=== PATIENT | male | born 1980 | race Caucasian/White ===

== ENCOUNTER 2018-06-14 20:33 | Emergency (ER) | payer OTHER ==
[2018-06-14 20:44] VITALS: BP 149/88; PULSE 106; TEMP 98.6; BMI 30.2
[2018-06-14 21:08] LABS: PH,URINE 5.5 (4.5-8); URINE APPEARANCE Clear; URINE BILIRUBIN Negative (NEGATIVE); URINE COLOR Yellow; URINE GLUCOSE (UA) Negative (NEGATIVE); URINE KETONE Negative (NEGATIVE); URINE LEUK ESTERASE Negative (NEGATIVE); URINE NITRITE Negative (NEGATIVE); URINE PROTEIN Negative (NEGATIVE); URINE UROBILINOGEN 0.2 (0.2-1.0)
--- NOTE | 2018-06-14 21:09 | PDOC ---
History of Present Illness - General History Source: Patient Exam Limitations: No Limitations - History of Present Illness Initial Comments: 06/14/18 21:32 The patient is a 37 year old male, with a significant past medical history CAD, NM s/p cardiac stent (2017), HTN and HLD, who presents to the ED complaining of abdominal pain, urinary frequency and urgency. He reports that 5 days ago he began to drink a tea in an effort to detox. A few days later he developed left lower quadrant pain and the feeling to urinate, with only expelling half his normal urine volume. He notes that this has been consistent throughout and has been rushing to the bathroom due to the urgency every 15 minutes or so. He reports that his abdominal pain has radiated to the suprapubic region, which he ranges from mild to moderate in severity. He notes that he did check his temperature yesterday because he was feeling warm and saw that his temperature was 102 F, prompting him to come to the ED for evaluation. The patient denies chest pain, shortness of breath, headache and dizziness. Denies nausea, vomiting, diarrhea or constipation. Denies dysuria and hematuria. Allergies: [place] Past surgical history: Cardiac Stent Social History: Cigarette use (19 daily) <Jevon Sanchez - Last Filed: 06/14/18 21:30> <Erica Rosenberg - Last Filed: 06/15/18 04:33> - General Chief Complaint: Pain Stated Complaint: ABD PAIN, URINARY SX Time Seen by Provider: 06/14/18 20:43 Past History <Jevon Sanchez - Last Filed: 06/14/18 21:30> - Past Medical History Cardiac Disorders: Yes (CAD) COPD: No HTN: Yes Hypercholesterolemia: Yes - Surgical History Cardiac Surgery: Yes (STENTS) - Suicide/Smoking/Psychosocial Hx Smoking History: Current every day smoker Have you smoked in the past 12 months: Yes Number of Cigarettes Smoked Daily: 19 Information on smoking cessation initiated: Yes 'Breaking Loose' booklet given: 06/14/18 Hx Alcohol Use: No <Erica Rosenberg - Last Filed: 06/15/18 04:33> - Past Medical History Allergies/Adverse Reactions: Allergies Allergy/AdvReac Type Severity Reaction Status Date / Time No Known Allergies Allergy Verified 06/14/18 20:34 Home Medications: Ambulatory Orders Aspirin [Aspirin EC] 81 mg PO HS 06/14/18 Metoprolol Succinate [Toprol Xl] 25 mg PO HS 06/14/18 Rosuvastatin Calcium [Crestor] 10 mg PO HS 06/14/18 Amox-Tr/K Cl [Augmentin - 875Mg Tablet] 1 tab PO TID #30 tablet 06/15/18 Review of Systems - Review of Systems Able to Perform ROS?: Yes Comments:: 06/14/18 21:31 GENERAL/CONSTITUTIONAL: (+) Fever. No chills. No weakness. HEAD, EYES, EARS, NOSE AND THROAT: No change in vision. No ear pain or discharge. No sore throat. GASTROINTESTINAL: (+) Abdominal pain. No nausea, vomiting, diarrhea or constipation. GENITOURINARY: (+) Frequency and urgency. No dysuria. CARDIOVASCULAR: No chest pain or shortness of breath. RESPIRATORY: No cough, wheezing, or hemoptysis. MUSCULOSKELETAL: No joint or muscle swelling or pain. No neck or back pain. SKIN: No rash NEUROLOGIC: No headache, vertigo, loss of consciousness, or change in strength/ sensation. ENDOCRINE: No increased thirst. No abnormal weight change. HEMATOLOGIC/LYMPHATIC: No anemia, easy bleeding, or history of blood clots. ALLERGIC/IMMUNOLOGIC: No hives or skin allergy. <Jevon Sanchez - Last Filed: 06/14/18 21:30> *Physical Exam - Vital Signs Last Vital Signs Temp Pulse Resp BP Pulse Ox 98.6 F 106 H 20 149/88 97 06/14/18 20:33 06/14/18 20:33 06/14/18 20:33 06/14/18 20:33 06/14/18 20:33 - Physical Exam Comments: 06/14/18 21:31 Constitutional: Awake, alert, oriented. No acute distress. Head: Normocephalic. Atraumatic Neck: Supple. Full ROM. No lymphadenopathy. Cardiovascular: Regular rate. Regular rhythm. S1, S2 regular. Distal pulses are 2+ and symmetric. Pulmonary/Chest: No evidence of respiratory distress. Clear to auscultation bilaterally No wheezing, rales or rhonchi. Abdominal: (+) Suprapubic and left lower quadrant tenderness. Soft and non- distended. No rebound, guarding or rigidity. No organomegaly. No palpable masses. Good bowel sounds. Back: No CVA tenderness. Musculoskeletal: No edema. No cyanosis. No clubbing. Full range of motion in all extremities. Nocalf tenderness. Radial/pedal pulses are intact and 2+ bilaterally Skin: Skin is warm and dry. No petechiae. No purpura. Neurological: Alert and oriented to person, place, and time. Cranial nerves II -XII are grossly intact. Normal speech. Strength is grossly symmetric. No sensory deficits. Psychiatric: Good eye contact. Normal interaction, affect and behavior. <Jevon Sanchez - Last Filed: 06/14/18 21:30> - Vital Signs Last Vital Signs Temp Pulse Resp BP Pulse Ox 98.6 F 106 H 20 149/88 97 06/14/18 20:33 06/14/18 20:33 06/14/18 20:33 06/14/18 20:33 06/14/18 20:33 <Erica Rosenberg - Last Filed: 06/15/18 04:33> ED Treatment Course - ADDITIONAL ORDERS Additional order review: Laboratory Results 06/14/18 20:51 Urine Color Yellow Urine Appearance Clear Urine pH 5.5 Ur Specific [place] 1.025 Urine Protein Negative Urine Glucose (UA) Negative Urine Ketones Negative Urine Blood Negative Urine Nitrite Negative Urine Bilirubin Negative Urine Urobilinogen 0.2 Ur Leukocyte Esterase Negative <Jevon Sanchez - Last Filed: 06/14/18 21:30> - LABORATORY CBC & Chemistry Diagram: 06/14/18 21:30 06/14/18 21:30 - ADDITIONAL ORDERS Additional order review: Laboratory Results 06/14/18 20:51 Urine Color Yellow Urine Appearance Clear Urine pH 5.5 Ur Specific [place] 1.025 Urine Protein Negative Urine Glucose (UA) Negative Urine Ketones Negative Urine Blood Negative Urine Nitrite Negative Urine Bilirubin Negative Urine Urobilinogen 0.2 Ur Leukocyte Esterase Negative <Erica Rosenberg - Last Filed: 06/15/18 04:33> Progress Note - Progress Note Progress Note: Documentation has been prepared under my direction and personally reviewed by me in its entirety. I attest that this documented accurately reflects all work, treatment, procedures and medical decision making performed by me. <Erica Rosenberg - Last Filed: 06/15/18 04:33> Medical Decision Making - Medical Decision Making As noted above, this 37-year-old man with a significant history of coronary artery disease but no previous gastrointestinal issues presents with several day history of progressive left lower quadrant/suprapubic discomfort along with urinary frequency. Patient has no history of dysuria or hematuria. He describes frequent urination of small amounts of urine. Exam as noted. Because of the distinct tenderness of the left lower quadrant suprapubic area, local infectious process such as diverticulitis is possible. No clear hernial irritation signs are present on exam, however. CBC/chemistry/urinalysis as well as blood culture/lactic acid sent. Urinalysis was negative for microscopic hematuria or other abnormalities. White blood cell count notable for elevation to 15,000 with mild neutrophil predominance. No other significant abnormality seen. Abdominal/pelvic CT with IV contrast (no oral contrast) performed. There is evidence of uncomplicated diverticulitis in the sigmoid colon. No other significant abnormality seen. Since patient is not vomiting and appears to have no indications for hospitalization, patient will be started on outpatient oral antibiotics for his uncomplicated diverticulitis. Augmentin 875/125 dose given and prescription for this dose 3 times a day for 10 days sent to patient's pharmacy. Patient currently does not have a general medical doctor (the patient states that he uses his fruit or nut picker as his primary care doctor); he will be given Dr. Albert's referral information for follow-up within the next week. If he has worsening pain, vomiting, fever, he should return to the ER <Erica Rosenberg - Last Filed: 06/15/18 04:33> *DC/Admit/Observation/Transfer - Attestations Scribe Attestion: 06/14/18 21:32 Documentation prepared by Jevon Sanchez, acting as medical facilities section director for Erica Rosenberg MD <Jevon Sanchez - Last Filed: 06/14/18 21:30> <Erica Rosenberg - Last Filed: 06/15/18 04:33> Diagnosis at time of Disposition: Acute diverticulitis - Discharge Dispostion Disposition: HOME Condition at time of disposition: Stable - Prescriptions Prescriptions: Amox-Tr/K Cl [Augmentin - 875Mg Tablet] 1 tab PO TID #30 tablet - Referrals Referrals: Lennox Albert MD [Staff Physician] - - Patient Instructions Printed Discharge Instructions: Diverticulitis Additional Instructions: light diet Augmentin 875/125 3 X day for 10 days ; take with food return to ER if you have worsening pain/fever/vomiting followup with general medical doctor or finishing manager(Dr Albert) within the next 5-7 days
[2018-06-14 21:48] LABS: BASO % 1.2 % (0-2.0); EOS % 2.6 % (0-4.5); HEMATOCRIT 44.5 % (35.4-49); HEMOGLOBIN 15.2 GM/dl (11.7-16.9); LYMPH % 20.6 % (8-40); MCH 30.7 pg (25.7-33.7); MCHC 34.1 g/dl (32.0-35.9); MEAN CELL VOLUME 89.8 fl (80-96); MEAN PLT VOLUME 9.4 fl (7.5-11.1); MONO % 7.4 % (3.8-10.2); NEUT % 68.2 % (42.8-82.8); PLATELET COUNT 236 K/MM3 (134-434); RBC 4.95 M/mm3 (4.00-5.60); RDW 11.8 % (11.9-15.9)
[2018-06-14 21:59] LABS: INR 1.13 (0.82-1.09); PROTHROMBIN TIME (PATIENT) 12.6 SEC (10.2-13.0)
[2018-06-14 22:04] LABS: ALBUMIN 3.9 g/dl (3.5-5.0); ALK PHOS 66 U/L (32-92); ANION GAP 5 MMOL/L (8-16); BILIRUBIN,TOTAL 1.2 mg/dl (0.2-1.0); BLOOD UREA NITROGEN 13 mg/dl (7-18); CALCIUM 8.5 mg/dl (8.4-10.2); CHLORIDE 103 mmol/L (98-107); CO2 25 mmol/L (22-28); GLUCOSE,RANDOM 102 mg/dl (74-106); POTASSIUM 3.6 mmol/L (3.5-5.1); SGOT/AST 18 U/L (10-42); SGPT/ALT 30 U/L (10-40); SODIUM 133 mmol/L (136-145); TOT PROT 6.6 g/dl (6.4-8.3)
[2018-06-15] MEDS ORDERED: AMOX TR/POT CLAV 875MG/125MG TABLETS (FP) PO ONE (00:15)
[2018-06-15] MEDS ORDERED: AMOX TR/POT CLAV 875MG/125MG TABLETS (FP) ONE (00:16)
== END 2018-06-15 00:26 | disposition home or self-care (01) ==
LOC: FER 20:33
DX: K57.92 Diverticulitis of intestine, part unspecified, without perforation or abscess without bleeding (principal); I25.10 Atherosclerotic heart disease of native coronary artery without angina pectoris
CPT/HCPCS: 36415; 74177-TC; 80053; 81003; 82550; 82553; 83605; 84484; 85025; 85610; 87040; 99283-25

== ENCOUNTER 2020-05-22 05:39 | Day surgery (SDC) | payer OTHER ==
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
[2020-05-21 14:45] VITALS: BMI 30.5
--- NOTE | 2020-05-21 22:19 | PROC ---
Procedure Note Procedure: Pre procedure Diagnosis: Lumbar Spinal Stenosis/ Lumabr radiculopathy Post Procedure Diagnosis: same Anesthesia: local Procedure Performed: L3-L4 Interlaminar epidural steroid injection After the risks and benefits were explained, informed consent was obtained. The patient was then taken to the procedure room and positioned prone on the procedure table. Time out was performed. Interlaminar space was identified using fluoroscopy. The skin was prepped and draped in the usual sterile fashion. The skin and soft tissues were anesthetized using 1% lidocaine. Under intermittent fluoroscopic guidance, a #22 gauge 3.5 inch [place] was successfully directed into the posterior epidural space at the L3-L4 level, using a posterior approach and loss of resistance technique. Needle placement was then confirmed with the injection of Omnipaque 180. Epidural flow was noted and no vascular uptake was noted. A 5 cc cocktail of 2 cc normal saline and 2 cc Dexamethasone 10 mg/mL and 1 cc of 1% lidocaine was then injected at the site. The patients response was again monitored and sensorimotor examination remained unchanged. The patient tolerated the procedure well and there were no complications. The patient was taken to the post procedure recovery area in good condition. Vital signs remained stable before, and after the procedure. The patient was given oral follow-up instructions. The patient was given a follow up appointment with me in the near future. Andrei Malagon DO
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
[2020-05-22] MEDS ORDERED: LIDOCAINE HCL/PF 1% SDV 5ML VIAL ONE (15:03)
[2020-05-22] MEDS ORDERED: IOHEXOL 180 MG/1 ML ML IJ ONE (15:37)
[2020-05-22] MEDS ORDERED: DEXAMETHASONE SOD PHOSPHATE 10 MG/1 ML VIAL IVPUSH ONE (15:37)
[2020-05-22] MEDS ORDERED: LIDOCAINE HCL 1% PRESERVATIVE FREE - 30ML VIAL IJ ONE (15:37)
[2020-05-22 18:45] VITALS: BP 107/71; PULSE 64; TEMP 97.5
== END 2020-05-22 17:15 | disposition home or self-care (01) ==
LOC: JASU-SURG 05:39
PROVIDERS: ATTEND Pain Medicine Pain Medicine
PROC: 3E0R3BZ Introduction of Anesthetic Agent into Spinal Canal, Percutaneous Approach (ICD-10-PCS; 2020-05-22)
PROC: B01BYZZ Fluoroscopy of Spinal Cord using Other Contrast (ICD-10-PCS; 2020-05-22)
PROC: 3E0R33Z Introduction of Anti-inflammatory into Spinal Canal, Percutaneous Approach (ICD-10-PCS; principal; 2020-05-22 14:30)
DX: M48.061 Spinal stenosis, lumbar region without neurogenic claudication (principal); M54.16 Radiculopathy, lumbar region
CPT/HCPCS: 76000-TC-FY; J1100

== ENCOUNTER 2020-06-29 04:45 | Day surgery (SDC) | payer OTHER ==
[2020-06-26 13:34] VITALS: BMI 30.4
[~2020-06-29 04:45] MED LIST: DEXAMETHASONE SOD PHOSPHATE 10 MG/1 ML VIAL IVPUSH ONE; IOHEXOL 180 MG/1 ML ML IJ ONE; LIDOCAINE HCL 1% PRESERVATIVE FREE - 30ML VIAL IJ ONE
[2020-06-29] MEDS ORDERED: LIDOCAINE HCL/PF 2% SDV 5ML VIAL ONE (07:47)
[2020-06-29] MEDS ORDERED: LIDOCAINE HCL/PF 1% SDV 5ML VIAL ONE (07:47)
[2020-06-29 09:40] VITALS: TEMP 97.8
[2020-06-29] MEDS ORDERED: DEXAMETHASONE SOD PHOSPHATE 10 MG/1 ML VIAL IVPUSH ONE (11:26)
[2020-06-29] MEDS ORDERED: LIDOCAINE HCL 1% PRESERVATIVE FREE - 30ML VIAL IJ ONE (11:26)
[2020-06-29] MEDS ORDERED: IOHEXOL 180 MG/1 ML ML IJ ONE (11:26)
[2020-06-29 12:03] VITALS: BP 115/83; PULSE 67
== END 2020-06-29 12:20 | disposition home or self-care (01) ==
LOC: JASU-SURG 04:45
PROVIDERS: ATTEND Pain Medicine Pain Medicine
PROC: 3E0R33Z Introduction of Anti-inflammatory into Spinal Canal, Percutaneous Approach (ICD-10-PCS; 2020-06-29)
PROC: B01BZZZ Fluoroscopy of Spinal Cord (ICD-10-PCS; 2020-06-29)
PROC: 3E0R3BZ Introduction of Anesthetic Agent into Spinal Canal, Percutaneous Approach (ICD-10-PCS; principal; 2020-06-29 11:30)
DX: M54.12 Radiculopathy, cervical region (principal)
CPT/HCPCS: 76000-TC-FY; J1100

== ENCOUNTER 2020-07-24 05:27 | Day surgery (SDC) | payer OTHER ==
[2020-07-23 12:26] VITALS: BMI 30.5
[2020-07-24] MEDS ORDERED: DEXAMETHASONE SOD PHOSPHATE/PF 10 MG/ML SDV ONE (07:09)
[2020-07-24] MEDS ORDERED: TRIAMCINOLONE ACET 40MG/1ML VIAL ONE (07:09)
[2020-07-24] MEDS ORDERED: BUPIVACAINE HCL/PF 0.25% (2.5MG/ML) 10 ML VIAL ONE (07:09)
[2020-07-24] MEDS ORDERED: LIDOCAINE HCL/PF 1% SDV 5ML VIAL ONE (07:09)
[2020-07-24] MEDS ORDERED: BUPIVACAINE HCL/PF 0.75% 10 ML VIAL ONE (07:10)
[2020-07-24] MEDS ORDERED: LIDOCAINE HCL 1% PRESERVATIVE FREE - 30ML VIAL EP ONE (08:53)
[2020-07-24] MEDS ORDERED: BUPIVACAINE HCL/PF 0.75% 10 ML VIAL NR ONE (08:53)
[2020-07-24] MEDS ORDERED: IOHEXOL 180 MG/1 ML ML IJ ONE (08:53)
[2020-07-24 09:28] VITALS: BP 107/76; PULSE 72; TEMP 98
== END 2020-07-24 09:25 | disposition home or self-care (01) ==
LOC: JASU-SURG 05:27
PROVIDERS: ATTEND Pain Medicine Pain Medicine
PROC: BR14YZZ Fluoroscopy of Cervical Facet Joint(s) using Other Contrast (ICD-10-PCS; 2020-07-24)
PROC: 3E0T3BZ Introduction of Anesthetic Agent into Peripheral Nerves and Plexi, Percutaneous Approach (ICD-10-PCS; principal; 2020-07-24 08:30)
DX: M47.816 Spondylosis without myelopathy or radiculopathy, lumbar region (principal)
CPT/HCPCS: 76000-TC-FY

== ENCOUNTER 2020-08-28 04:18 | Day surgery (SDC) | payer OTHER ==
[2020-08-25 13:09] VITALS: BMI 30.2
[2020-08-28] MEDS ORDERED: BUPIVACAINE HCL/PF 0.5% (5 MG/ML) 30 ML VIAL IJ ONE (08:46)
[2020-08-28] MEDS ORDERED: IOHEXOL 180 MG/1 ML ML IJ ONE (08:46)
[2020-08-28 09:16] VITALS: BP 122/79; PULSE 83; TEMP 97.8
== END 2020-08-28 09:48 | disposition home or self-care (01) ==
LOC: JASU-SURG 04:18
PROVIDERS: ATTEND Pain Medicine Pain Medicine
PROC: 3E0T33Z Introduction of Anti-inflammatory into Peripheral Nerves and Plexi, Percutaneous Approach (ICD-10-PCS; 2020-08-28)
PROC: 3E0T3BZ Introduction of Anesthetic Agent into Peripheral Nerves and Plexi, Percutaneous Approach (ICD-10-PCS; principal; 2020-08-28 08:30)
DX: M47.812 Spondylosis without myelopathy or radiculopathy, cervical region (principal)
CPT/HCPCS: 76000-TC-FY

== ENCOUNTER 2020-12-25 04:17 | Day surgery (SDC) | payer OTHER ==
[2020-12-24 18:45] VITALS: BMI 30.8
[~2020-12-25 04:17] MED LIST changes: +BUPIVACAINE HCL/PF 0.5% (5MG/ML) 10 ML VIAL IJ ONE; -DEXAMETHASONE SOD PHOSPHATE 10 MG/1 ML VIAL IVPUSH ONE
[2020-12-25] MEDS ORDERED: BUPIVACAINE HCL/PF 0.5% (5MG/ML) 10 ML VIAL ONE (07:25)
[2020-12-25] MEDS ORDERED: LIDOCAINE HCL/PF 1% SDV 5ML VIAL ONE (07:30)
[2020-12-25] MEDS ORDERED: IOHEXOL 180 MG/1 ML ML IJ ONE (14:40)
[2020-12-25] MEDS ORDERED: BUPIVACAINE HCL/PF 0.5% (5MG/ML) 10 ML VIAL IJ ONE (14:41)
[2020-12-25 15:34] VITALS: BP 120/82; PULSE 86; TEMP 98.2
== END 2020-12-25 15:27 | disposition home or self-care (01) ==
LOC: JASU-SURG 04:17
PROVIDERS: ATTEND Pain Medicine Pain Medicine
PROC: BR14YZZ Fluoroscopy of Cervical Facet Joint(s) using Other Contrast (ICD-10-PCS; 2020-12-25)
PROC: 3E0T3BZ Introduction of Anesthetic Agent into Peripheral Nerves and Plexi, Percutaneous Approach (ICD-10-PCS; principal; 2020-12-25 14:30)
DX: M47.812 Spondylosis without myelopathy or radiculopathy, cervical region (principal)
CPT/HCPCS: 76000-TC-FY

== ENCOUNTER 2021-01-15 04:33 | Day surgery (SDC) | payer OTHER ==
[2021-01-14 08:45] VITALS: BMI 30.8
[2021-01-15] MEDS ORDERED: BUPIVACAINE HCL/PF 0.5% (5MG/ML) 10 ML VIAL ONE (07:30)
[2021-01-15 11:20] VITALS: TEMP 97.7
[2021-01-15] MEDS ORDERED: DEXAMETHASONE SOD PHOSPHATE 10 MG/1 ML VIAL ONE (12:05)
[2021-01-15] MEDS ORDERED: LIDOCAINE HCL/PF 2% SDV 5ML VIAL INF ONE (12:15)
[2021-01-15] MEDS ORDERED: LIDOCAINE HCL 2% (50ML VIAL) INF ONE (12:15)
[2021-01-15] MEDS ORDERED: LIDOCAINE HCL 1% PRESERVATIVE FREE - 30ML VIAL IJ ONE (12:16)
[2021-01-15] MEDS ORDERED: DEXAMETHASONE SOD PHOSPHATE 10 MG/1 ML VIAL IM ONE (12:22)
[2021-01-15] MEDS ORDERED: BUPIVACAINE HCL/PF 0.5% (5MG/ML) 10 ML VIAL IJ ONE (12:23)
[2021-01-15 13:26] VITALS: BP 133/76; PULSE 91
== END 2021-01-15 13:25 | disposition home or self-care (01) ==
LOC: JASU-SURG 04:33
PROVIDERS: ATTEND Pain Medicine Pain Medicine
PROC: 3E0T3TZ Introduction of Destructive Agent into Peripheral Nerves and Plexi, Percutaneous Approach (ICD-10-PCS; principal; 2021-01-15 14:00)
PROC: BR14YZZ Fluoroscopy of Cervical Facet Joint(s) using Other Contrast (ICD-10-PCS; 2021-01-15 14:00)
DX: M47.812 Spondylosis without myelopathy or radiculopathy, cervical region (principal)
CPT/HCPCS: 76000-TC-FY; J1100

== ENCOUNTER 2021-02-12 05:08 | Day surgery (SDC) | payer OTHER ==
[2021-02-03 17:32] VITALS: BMI 30.8
[2021-02-12] MEDS ORDERED: LIDOCAINE HCL/PF 1% SDV 5ML VIAL ONE (07:28)
[2021-02-12] MEDS ORDERED: BUPIVACAINE HCL/PF 0.75% 10 ML VIAL ONE (07:28)
[2021-02-12] MEDS ORDERED: BUPIVACAINE HCL/PF 0.5% (5MG/ML) 10 ML VIAL ONE (10:45)
[2021-02-12] MEDS ORDERED: BUPIVACAINE HCL/PF 0.75% 10 ML VIAL MM ONE (12:59)
[2021-02-12] MEDS ORDERED: LIDOCAINE HCL 1%, 10 MG/ML (20ML VIAL) INF ONE (12:59)
[2021-02-12] MEDS ORDERED: IOHEXOL 180 MG/1 ML ML IJ ONE (12:59)
[2021-02-12 13:45] VITALS: BP 120/70; PULSE 70; TEMP 98.6
== END 2021-02-12 13:40 | disposition home or self-care (01) ==
LOC: JASU-SURG 05:08
PROVIDERS: ATTEND Pain Medicine Pain Medicine
PROC: BR16YZZ Fluoroscopy of Lumbar Facet Joint(s) using Other Contrast (ICD-10-PCS; 2021-02-12)
PROC: 3E0T3BZ Introduction of Anesthetic Agent into Peripheral Nerves and Plexi, Percutaneous Approach (ICD-10-PCS; principal; 2021-02-12 11:30)
DX: M47.816 Spondylosis without myelopathy or radiculopathy, lumbar region (principal); I25.10 Atherosclerotic heart disease of native coronary artery without angina pectoris; I10 Essential (primary) hypertension; Z95.5 Presence of coronary angioplasty implant and graft; R73.03 Prediabetes
CPT/HCPCS: 76000-TC-FY

== ENCOUNTER 2021-06-04 04:24 | Day surgery (SDC) | payer OTHER ==
[2021-06-02 15:02] VITALS: BMI 30.8
[2021-06-04] MEDS ORDERED: BUPIVACAINE HCL/PF 0.75% 10 ML VIAL ONE (07:56)
[2021-06-04] MEDS ORDERED: DEXAMETHASONE SOD PHOSPHATE 10 MG/1 ML VIAL ONE (07:56)
[2021-06-04] MEDS ORDERED: LIDOCAINE HCL 1% PRESERVATIVE FREE - 30ML VIAL IJ ONE (11:36)
[2021-06-04] MEDS ORDERED: LIDOCAINE HCL/PF 2% SDV 5ML VIAL INF ONE (11:37)
[2021-06-04] MEDS ORDERED: IOHEXOL 180 MG/1 ML ML IJ ONE ×2 (11:38→11:40)
[2021-06-04] MEDS ORDERED: DEXAMETHASONE SOD PHOSPHATE 10 MG/1 ML VIAL IVPUSH ONE ×2 (11:38→11:41)
[2021-06-04] MEDS ORDERED: BUPIVACAINE HCL/PF 0.75% 10 ML VIAL NR ONE ×2 (11:38→11:42)
[2021-06-04 12:47] VITALS: BP 133/94; PULSE 71; TEMP 98.6
== END 2021-06-04 12:51 | disposition home or self-care (01) ==
LOC: JASU-SURG 04:24
PROVIDERS: ATTEND Pain Medicine Pain Medicine
PROC: 3E0T3TZ Introduction of Destructive Agent into Peripheral Nerves and Plexi, Percutaneous Approach (ICD-10-PCS; principal; 2021-06-04 09:45)
PROC: BR16YZZ Fluoroscopy of Lumbar Facet Joint(s) using Other Contrast (ICD-10-PCS; 2021-06-04 09:45)
DX: M47.816 Spondylosis without myelopathy or radiculopathy, lumbar region (principal)
CPT/HCPCS: 76000-TC-FY; J1100

== ENCOUNTER 2022-02-11 04:31 | Day surgery (SDC) | payer OTHER ==
[2022-02-10 13:25] VITALS: BMI 30.2
[2022-02-11] MEDS ORDERED: LIDOCAINE HCL/PF 1% SDV 5ML VIAL ONE (07:28)
[2022-02-11] MEDS ORDERED: BUPIVACAINE HCL/PF 0.25% (2.5MG/ML) 10 ML VIAL ONE (07:28)
[2022-02-11] MEDS ORDERED: DEXAMETHASONE SOD PHOSPHATE 10 MG/1 ML VIAL ONE (07:28)
[2022-02-11] MEDS ORDERED: LIDOCAINE HCL/PF 2% SDV 5ML VIAL ONE (08:05)
[2022-02-11] MEDS ORDERED: LIDOCAINE HCL/PF 2% SDV 5ML VIAL INF ONE (13:04)
[2022-02-11] MEDS ORDERED: BUPIVACAINE HCL/PF 0.75% 10 ML VIAL NR ONE (13:05)
[2022-02-11] MEDS ORDERED: DEXAMETHASONE SOD PHOSPHATE 10 MG/1 ML VIAL IM ONE (13:05)
[2022-02-11 15:13] VITALS: BP 118/81; PULSE 78; TEMP 98
== END 2022-02-11 13:45 | disposition home or self-care (01) ==
LOC: JASU-SURG 04:31
PROVIDERS: ATTEND Pain Medicine Pain Medicine
PROC: 3E0T3TZ Introduction of Destructive Agent into Peripheral Nerves and Plexi, Percutaneous Approach (ICD-10-PCS; principal; 2022-02-11 11:30)
DX: M47.816 Spondylosis without myelopathy or radiculopathy, lumbar region (principal)
CPT/HCPCS: 76000-TC-FY; J1100

== ENCOUNTER 2022-03-11 03:59 | Day surgery (SDC) | payer OTHER ==
[2022-03-08 16:55] VITALS: BMI 30.2
[2022-03-11] MEDS ORDERED: DEXAMETHASONE SOD PHOSPHATE 10 MG/1 ML VIAL ONE (07:14)
[2022-03-11] MEDS ORDERED: LIDOCAINE HCL/PF 1% SDV 5ML VIAL ONE (07:14)
[2022-03-11] MEDS ORDERED: LIDOCAINE HCL/PF 2% SDV 5ML VIAL ONE (07:22)
[2022-03-11] MEDS ORDERED: BUPIVACAINE HCL/PF 0.5% (5MG/ML) 10 ML VIAL IJ ONE (10:32)
[2022-03-11] MEDS ORDERED: LIDOCAINE HCL/PF 2% SDV 5ML VIAL INF ONE (10:33)
[2022-03-11] MEDS ORDERED: LIDOCAINE HCL 1% PRESERVATIVE FREE - 30ML VIAL IJ ONE (10:33)
[2022-03-11] MEDS ORDERED: DEXAMETHASONE SOD PHOSPHATE 10 MG/1 ML VIAL IVPUSH ONE (10:34)
[2022-03-11 12:58] VITALS: BP 119/80; PULSE 82; RESP 18; TEMP 98.9
== END 2022-03-11 11:55 | disposition home or self-care (01) ==
LOC: JASU-SURG 03:59
PROVIDERS: ATTEND Pain Medicine Pain Medicine
PROC: 3E0T3TZ Introduction of Destructive Agent into Peripheral Nerves and Plexi, Percutaneous Approach (ICD-10-PCS; principal; 2022-03-11 09:30)
DX: M47.812 Spondylosis without myelopathy or radiculopathy, cervical region (principal)
CPT/HCPCS: 76000-TC-FY; J1100

== ENCOUNTER 2023-07-11 13:07 | Emergency (ER) | payer OTHER ==
[2023-07-11 13:22] VITALS: RESP 16; BMI 30.8
[2023-07-11] MEDS ORDERED: ACETAMINOPHEN 1000 MG/100 ML BAG IVPB ONE (13:41)
[2023-07-11] MEDS ORDERED: SODIUM CHLORIDE 0.9% 1000 ML INFUS.BAG IV ONE (13:41)
[2023-07-11 14:11] VITALS: TEMP 99.9
[2023-07-11 14:41] LABS: INR 1.09 (0.83-1.09); PROTHROMBIN TIME (PATIENT) 12.6 SEC (9.7-13.0)
[2023-07-11 14:42] LABS: HEMATOCRIT 44.5 % (35.4-49); HEMOGLOBIN 15.7 G/dL (11.7-16.9); MCH 31.9 pg (25.7-33.7); MCHC 35.2 g/dl (32.0-35.9); MEAN CELL VOLUME 90.5 fl (80-96); MEAN PLT VOLUME 8.9 fl (7.5-11.1); RBC 4.92 10^6/uL (4.00-5.60); RDW 13.6 % (11.9-15.9)
[2023-07-11 14:44] LABS: ACTIVATED PTT 34.7 SECONDS (25.2-36.5)
[2023-07-11 14:52] LABS: ALBUMIN 4.2 g/dl (3.4-5.0); BILIRUBIN,TOTAL 0.9 mg/dl (0.2-1); CALCIUM 9.4 mg/dl (8.5-10.1); POTASSIUM 3.9 mmol/L (3.5-5.1); TOT PROT 6.6 g/dl (6.4-8.2)
[2023-07-11 15:18] LABS: PLATELET ESTIMATE ADEQUATE
[2023-07-11] MEDS ORDERED: AMOX TR/POT CLAV 875MG/125MG TABLETS (FP) PO ONE (16:14)
[2023-07-11] MEDS ORDERED: AMOX TR/POT CLAV 875MG/125MG TABLETS (FP) ONE (16:19)
[2023-07-11 16:26] VITALS: BP 123/91; PULSE 81
== END 2023-07-11 16:38 | disposition home or self-care (01) ==
LOC: FER 13:07
PROC: 3E033NZ Introduction of Analgesics, Hypnotics, Sedatives into Peripheral Vein, Percutaneous Approach (ICD-10-PCS; principal; 2023-07-11)
DX: K57.92 Diverticulitis of intestine, part unspecified, without perforation or abscess without bleeding (principal); R10.30 Lower abdominal pain, unspecified; R39.11 Hesitancy of micturition
CPT/HCPCS: 36415; 71046-TC-FY; 74177-TC; 80053; 81003; 84484; 85027; 85610; 85730; 87086; 87491; 87591; 93005; 99285-25; Q9967